=== PATIENT | male | born 1965 | race Caucasian/White ===

== ENCOUNTER 2020-01-30 06:55 | Day surgery (SDC) | payer OTHER ==
[~2020-01-30] VITALS: Ht 193 cm; Wt 95.2 kg
[~2020-01-30 06:55] MED LIST: GLUCOSAMINE R1000 MG PO; ULTRAM50 MG PO; VITAMIN C1000 MG PO; VITAMIN D325 MC1 PO
[2020-01-30] MEDS ORDERED: DICLOFENAC SODI75 MG PO (08:32)
[2020-01-30] MEDS ORDERED: HYDROCODON-ACE1 EA11 PO (08:32)
--- NOTE | 2020-01-30 08:57 | NUR ---
01/30/20 0857 Karo Buitrago 0840-PT ARRIVES TO PACU ON 6 L AMASK. PT UNRESPONSIVE TO VERBAL STIMULUS. PT IS SNORING AND FOGGING IN MASK IS PRESENT. VSS. REBAR BENDER AT BEDSIDE. ICE AND ELEVATION TO LLE PER ORDERS. CMS INTACT IN LEFT FOOT. 0845-PT REACTIVE TO VERBAL STIMULUS. PT FALLS BACK ASLEEP EASILY. VSS. SATS >90%. REMAINS ON 6 L VIA MASK
--- NOTE | 2020-01-30 09:25 | NUR ---
PATIENT BACK TO ROOM, REPORT FROM CHET MENDOZA. FULL BODY ASSESMENT DONE. LEFT LEG ELEVATED ON PILLOW WITH ICE APPLIED. STRONG PEDAL PULSE, DRESSING C/D/I. PATIENT AWAKE AND ORIENTED X3 EATING CRACKERS AND DRINKING ICE WATER. NO COMPLAINTS OF NAUSEA. ADMINISTERED PAIN MEDICAITON PER MAR. CALL LIGHT WITHIN REACH. NO OTHER NEEDS AT HIS TIME. PROVIDED PATIENT WITH DR. BRUCE HOME INSTRUCTIONS AND DEMONSTRATED EXERCISES. PATIENT VERBALIZED UNDERSTANDING.
--- NOTE | 2020-01-30 10:50 | NUR ---
PATIENT STEADY ON FEET. VOIDED WELL. REPORTS READY TO DISCHARGE HOME. DC IV TO RIGHT HAND. RATES PAIN 2/10 ON PAIN SCALE.
--- NOTE | 2020-01-30 10:59 | NUR ---
PROVIDED DISCHARGE INSTRUCTION TO PATIENT, ANSWERED QUESTIONS AND CONCERNS. PATIENT READ THROUGH DR. BRUCE DISCHARGE INSTRUCTION PACKET. PATIENT DEMONSTRATES UNDERSTANDING. WHEEL CHAIR RIDE PROVIDED TO FRONT.
--- NOTE | 2020-02-02 06:59 | OR ---
[facility] [address], [place] [address] Signed DATE OF OPERATION: 01/30/2020 SURGEON: Renay Perez MD PREOPERATIVE DIAGNOSES: 1. Left knee medial meniscus tear. 2. Right knee degenerative joint disease. POSTOPERATIVE DIAGNOSES: 1. Left knee medial meniscus tear. 2. Right knee degenerative joint disease. PROCEDURE PERFORMED: 1. Left knee arthroscopy with partial medial meniscectomy. 2. Intra-articular injection, right knee. Kenalog 2 mL, Marcaine 2 mL. ASSET MANAGEMENT COORDINATOR: None. ANESTHESIA: General. BLOOD LOSS: Minimal. TOURNIQUET TIME: Zero. BRIEF HISTORY: Cecelia is a 55-year-old gentleman with pain and locking in his knee. MRI is consistent with fairly large posteromedial meniscus tear. Risks and benefits of operative treatment were discussed with him. He elected to proceed. Because he was having pain in his right knee and had received injections previously, he wished to proceed with that. The risks, benefits, and alternatives were discussed. He understood. DESCRIPTION OF PROCEDURE: Once consent was obtained, he was taken to the operating room after adequate anesthesia. He was placed in the operating room table. All downside pressure points were well padded. The right leg was prepped with alcohol and through the suprapatellar portal was injected with 2 mL Kenalog and 2 mL of 0.25% Marcaine plain. The knee was then placed Electronically Signed By: RENAY PEREZ MD 02/02/20 0659 PATIENT NAME: CECELIA MARSHALL OPERATIVE REPORT DATE OF : 67 REPORT #: [id number] PHYSICIAN: RENAY PEREZ MD PCP: Aliyah DIANA MD REPORT IS CONFIDENTIAL AND NOT TO BE RELEASED WITHOUT AUTHORIZATION [facility] [address], [place] [address] Signed in offside leg young in a flexed abducted position. The left leg was placed in well-padded proximal thigh leg young and no tourniquet was placed. The portals were pre-injected using 0.25% Marcaine with epinephrine under alcohol prep. The leg was then prepped and draped in a standard sterile fashion. The standard inferolateral and superolateral portals were made and the scope was introduced in the knee. ARTHROSCOPIC FINDINGS: The knee had a moderate synovitis particularly medially. The patella was noted to be stable and tracked well. There was minimal chondromalacia. Medial and lateral gutters were clear. ACL and PCL were clear and intact. Medial compartment showed grade 1 to areas of grade 2 chondromalacia on the femur, grade 1 on the tibia. ACL and PCL were intact as I said. Lateral compartment showed grade 1 chondromalacia with no meniscal tear. Medial compartment showed grade 1-2 chondromalacia of the femur with complex posterior tear. Standard inferomedial portal was made after localization using a spinal needle. The straight biter was introduced into the knee and the meniscus was trimmed back to stable rim. There was a superior flap that was trimmed as well. This was then smoothed using shaver and all debris was evacuated. The scope was withdrawn. Portals were closed with 3-0 nylon and the knee was injected with 60 mg Toradol at the end of the case. The wounds were dressed with Adaptic, ABD and Ciro wrap. He tolerated the procedure well. All sponge, needle, and instrument counts were correct. Renay Perez MD BA/MODL /[id number] Copies: ~ Electronically Signed By: RENAY PEREZ MD 02/02/20 0659 PATIENT NAME: CECELIA MARSHALL OPERATIVE REPORT DATE OF : 67 REPORT #: [id number] PHYSICIAN: RENAY PEREZ MD PCP: Aliyah DIANA MD REPORT IS CONFIDENTIAL AND NOT TO BE RELEASED WITHOUT AUTHORIZATION
== END 2020-01-30 11:00 | disposition home or self-care (01) ==
LOC: DS 06:55
PROVIDERS: Specialist
PROC: 3E0U33Z Introduction of Anti-inflammatory into Joints, Percutaneous Approach (ICD-10-PCS; 2020-01-30)
PROC: 0SBD4ZZ Excision of Left Knee Joint, Percutaneous Endoscopic Approach (ICD-10-PCS; 2020-01-30)
PROC: 3E0U3BZ Introduction of Anesthetic Agent into Joints, Percutaneous Approach (ICD-10-PCS; principal; 2020-01-30 08:30)
DX: S83.232A Complex tear of medial meniscus, current injury, left knee, initial encounter (principal); M17.11 Unilateral primary osteoarthritis, right knee; M22.42 Chondromalacia patellae, left knee; Z79.899 Other long term (current) drug therapy; Z98.52 Vasectomy status; Z98.890 Other specified postprocedural states
CPT/HCPCS: A9270; J0690; J1885; J2001; J2250; J2405; J2704; J3301; J7121